=== PATIENT | male | born 1945 | race Caucasian/White ===

== ENCOUNTER → 2018-09-10 13:18 | Outpatient (CLI) | payer OTHER, SELFPAY ==
--- NOTE | 2018-09-10 13:23 | DI.ECHO.S_ITS ---
[place] +---------+ [facility] +---------+ : : [address] : [address] : : : : [id number] : : : : Phone: [phone]---------+ Echocardiogram Report + + :Name: OCTAVIO JOHNSON Study Date: 09/10/2018 Height: 74 in : :[facility] Weight: 210 lb : : Gender: Male BSA: 2.2 m2 : :: 1945 Age: 73 yrs BP: 140/70 mmHg: :Reason For Study: CABG : :Ordering Physician: QTC Performed By: Yohana Will : :Referring: CELINA MONREAL : + + Interpretation Summary Technically difficult study. Normal left ventricle size with ejection fraction 55-60%. Grade I diastolic dysfunction. Mild mitral annular calcification. Mildly enlarged ascending aorta and aortic arch. Procedure: A two-dimensional transthoracic echocardiogram with color flow and Doppler was performed. The study quality was technically difficult. A contrast injection of Definity was performed to improve assessment of LV function. There is no prior echocardiogram noted for this patient. The patient was in normal sinus rhythm during the exam. Left Ventricle: The left ventricle is normal in size. There is normal left ventricular wall thickness. There is no ventricular septal defect visualized. The ejection fraction is estimated to be 55-60%. There are no obvious focal wall motion abnormalities noted but poor endocardial definition reduces the sensitivity for the detection of such. Diastolic parameters suggest a relaxation abnormality of the left ventricle, consistent with probable normal filling pressures. Right Ventricle: The right ventricle grossly appears normal in size with probable normal systolic function. Atria: The left atrium is not well visualized. Right atrial size is normal. There is no Doppler evidence for an interatrial shunt. Mitral Valve: There is mild mitral annular calcification. There is trace mitral regurgitation. Aortic Valve: The aortic valve is trileaflet. The aortic valve opens well. Doppler assessment of the aortic valve was not performed on today's study. There is at least trace aortic insufficiency. Tricuspid Valve: The tricuspid valve leaflets are thin and pliable. There is a trace or physiologic amount of tricuspid regurgitation. Pulmonary artery pressures cannot be estimated because of the lack of a measurable TR jet velocity but the IVC suggests a CVP of around 3 mmHg. Pulmonic Valve: The pulmonic valve is not well visualized. Great Vessels: The aortic root is normal size. The ascending aorta is mildly enlarged. The aortic arch is mildly enlarged. The IVC is of normal diameter and collapses greater than 50% with a sniff. This suggests a low right atrial pressure of 3 mm Hg. Pericardium/ Pleura There is no pericardial effusion. MMode/2D Measurements & Calculations LVIDd: 4.7 cm LVOT diam: 2.1 cm LVIDs: 2.8 cm Ao root diam: 3.4 cm FS: 40.5 % Aortic Jxn: 3.0 cm EPSS: 0.57 cm asc Aorta Diam: 3.7 cm IVSd: 0.87 cm Ao Arch Diam (Prox Trans): 3.3 cm LVPWd: 0.91 cm LV quiroz. diameter/BSA (cm/m^2): 2.1 LV sys. diameter/BSA (cm/m^2): 1.2 RA long axis: 4.7 cm RA area: 15.9 cm2 RA vol: 46.0 ml RA : 20.7 ml/m2 IVC diam: 1.7 cm Doppler Measurements & Calculations MV E max geovany: 56.8 cm/sec TR max geovany: 136.3 cm/sec MV A max geovany: 81.4 cm/sec TR max P.4 mmHg MV E/A: 0.70 PA V2 max: 84.5 cm/sec Med Peak E' Geovany: 5.7 cm/sec PA V2 mean: 61.0 cm/sec E/E' med: 10.0 PA mean P.7 mmHg Lat Peak E' Geovany: 8.7 cm/sec PA Accel Time: 0.10 sec E/E' lat: 6.5 E/e' average: 8.2 MV dec time: 0.19 sec MV P1/2t: 55.6 msec MV P1/2t max geovany: 56.5 cm/sec MVA(P1/2t): 4.0 cm2 Electronically signed by: Stan Gibbs on Reading Physician:09/10/2018 04:58 PM
== END ==
PROVIDERS: Visit Provider Physician Assistant
DX: I25.9 Chronic ischemic heart disease, unspecified (principal); I77.810 Thoracic aortic ectasia; Z95.1 Presence of aortocoronary bypass graft
CPT/HCPCS: 93306; Q9957